=== PATIENT | male | born 1940 | race Caucasian/White ===

== ENCOUNTER 2020-04-27 08:19 | Outpatient (NON) | payer MEDICARE, SELFPAY ==
[2020-04-27 14:32] LABS: Influenza Control Positive
[2020-04-28 00:19] LABS: SARS-CoV-2 RNA PCR Negative
== END 2020-04-27 08:20 ==
PROVIDERS: PCP Family Medicine; Visit Provider Physician Assistant
DX: R53.83 Other fatigue (principal); R06.02 Shortness of breath; Z20.828 Contact with and (suspected) exposure to other viral communicable diseases
CPT/HCPCS: 87635; 87804; C9803; U0003

== ENCOUNTER 2020-10-01 08:41 | Outpatient (CLI) | payer MEDICARE, SELFPAY ==
--- NOTE | ~2020-10-01 | XR_ITS ---
EXAMINATION: XR chest 2V DATE: 10/01/2020 09:21 INDICATION: Cough and shortness of breath. Right chest pain. TECHNIQUE: Frontal and lateral views of the chest were obtained. COMPARISON: Chest 2 views 07/17/2015 FINDINGS: A calcified right lung nodule is consistent with old granulomatous disease. There is mild a telectasis in the lower lung zones. No pleural effusion or pneumothorax. The heart size is normal. IMPRESSION: 1. Mild atelectasis in the lower lung zones. Reviewed, dictated and finalized at location B.
[2020-10-01 09:07] LABS: Basophils Percent Auto 0.4 % (0.2-1.2); Eosinophils Absolute Auto 0.1 K/mm3 (0-0.3); Eosinophils Percent Auto 1.2 % (0-4.4); Hematocrit 40.2 % (42.0-52.0); Hemoglobin 12.6 g/dL (14.0-18.0); Immature Granulocyte Absolute 0.04 K/mm3 (0.00-0.031); Immature Granulocyte Percent A 0.4 % (0-0.5); Lymphocytes Absolute Auto 2.08 K/mm3 (0.9-3.2); Mean Corpuscular HGB Conc 31.3 g/dl (32-36); Mean Corpuscular Hemoglobin 26.7 pg (26-34); Mean Corpuscular Volume 85.2 fl (80-100); Mean Platelet Volume 9.9 fl (7.4-10.4); Monocytes Absolute Auto 0.8 K/mm3 (0.1-0.6); Monocytes Percent Auto 9.2 % (2.6-8.5); Neutrophils Absolute Auto 5.9 K/mm3 (1.3-6.7); Neutrophils Percent Auto 65.8 % (45.5-73.1); Platelet Count Result 240 k/mm3 (150-375); Red Blood Count 4.72 M/mm3 (4.6-6.20); Red Cell Distribution Width 16.2 % (11.5-14.5)
[2020-10-01 09:22] LABS: Alanine Aminotransferase 16 U/L (4-50); Albumin Level 3.6 g/dL (3.5-5.1); Alkaline Phosphatase 96 U/L (38-126); Anion Gap 0 mmol/L (8-16); Aspartate Amino Transferase 25 U/L (17-59); Bilirubin,Total 0.3 mg/dL (0.2-1.3); Blood Urea Nitrogen 17 mg/dL (9-20); Calcium 8.6 mg/dL (8.4-10.2); Carbon Dioxide 31 mmol/L (22-30); Chloride 108 mmol/L (98-107); Estimated Glomerular Filt Rate > 60; Glucose 144 mg/dL (75-110); Potassium 4.1 mmol/L (3.4-5.0); Sodium 139 mmol/L (137-145)
== END 2020-10-01 08:42 | disposition home or self-care (01) ==
PROVIDERS: PCP Family Medicine; Visit Provider Physician Assistant
DX: J44.9 Chronic obstructive pulmonary disease, unspecified (principal); R06.02 Shortness of breath; R05 Cough; R91.8 Other nonspecific abnormal finding of lung field
CPT/HCPCS: 36415; 71046; 80053; 85025

== ENCOUNTER 2021-11-27 18:24 | Observation (INO) | payer MEDICARE, OTHER, SELFPAY ==
[2021-11-27] VITALS (29 sets, daily range): BP systolic 135–166; BP diastolic 57–92; PULSE 63–78; RESP 13–20; TEMP 35.8–36.4; O2SAT 92–97; BMI 33.7
--- NOTE | ~2021-11-27 | NM_ITS ---
EXAMINATION: NM stephen stress w perfusion DATE: 11/28/2021 12:48 INDICATION: Chest pain TECHNIQUE: Rest images were obtained following intravenous administration of 9.6 mCi Tc99m tetrofosmi n (Myoview). The patient was infused intravenously with Lexiscan (Regadenoson). Then, 31.3 mCi Tc99m tetrofosmin (Myoview) was administered intravenously, and stress images were obtained. Data was recon structed into short axis and horizontal and vertical long axis SPECT images. Gated SPECT images were also obtained. COMPARISON: None. FINDINGS: There is no definite reversible or fixed perfusion abnormality to suggest ischemia or infar ction. There is normal left ventricular chamber size, wall motion and ejection fraction. Left ventr icular ejection fraction measures 68%. IMPRESSION: 1. Normal myocardial perfusion at rest and during stress. 2. Left ventricular ejection fraction measuring 68%. Reviewed, dictated and finalized at location A.
--- NOTE | ~2021-11-27 | XR_ITS ---
EXAMINATION: XR chest 2V Exam Date/Time: 11/27/2021 18:40 CDT HISTORY: CHEST PAIN/PRESSURE, LOWER EXT EDEMA Comparison: None available. RESULT: Lines, tubes, and devices: None. Lungs and pleura: Bibasilar scar/atelectasis, otherwise clear. Cardiomediastinal silhouette: Stable cardiomediastinal silhouette. Other: No acute osseous or upper abdominal finding. IMPRESSION: No acute cardiopulmonary process. Reviewed, dictated and finalized at location K.
--- NOTE | 2021-11-27 18:28 | ECG_ITS ---
Measurements Intervals [place] Rate: 69 P: -46 NE: 187 QRS: -47 QRSD: 153 T: 13 QT: 414 QTc: 445 Interpretive Statements SINUS RHYTHM RIGHT BUNDLE BRANCH BLOCK LEFT ANTERIOR FASCICULAR BLOCK ABNORMAL ECG Electronically Signed On 11-28-2021 6:54:39 CDT by Ang Garcia D.O.
[2021-11-27 19:04] LABS: Basophils Absolute Auto 0.1 K/mm3 (0.0-0.1); Basophils Percent Auto 0.4 % (0.2-1.2); Eosinophils Absolute Auto 0.1 K/mm3 (0-0.3); Eosinophils Percent Auto 0.8 % (0-4.4); Hemoglobin 13.1 g/dL (14.0-18.0); Immature Granulocyte Absolute 0.06 K/mm3 (0.00-0.031); Immature Granulocyte Percent A 0.5 % (0-0.5); Lymphocytes Absolute Auto 2.56 K/mm3 (0.9-3.2); Lymphocytes Percent Auto 19.4 % (18.3-44.2); Mean Corpuscular Volume 84.4 fl (80-100); Mean Platelet Volume 11.2 fl (7.4-10.4); Monocytes Absolute Auto 1.4 K/mm3 (0.1-0.6); Monocytes Percent Auto 10.5 % (2.6-8.5); Neutrophils Absolute Auto 9.1 K/mm3 (1.3-6.7); Neutrophils Percent Auto 68.4 % (45.5-73.1); Platelet Count Result 224 k/mm3 (150-375); Red Blood Count 4.86 M/mm3 (4.6-6.20); Red Cell Distribution Width 16.4 % (11.5-14.5); White Blood Count 13.2 K/mm3 (4.5-10.0)
[2021-11-27 19:09] LABS: Alanine Aminotransferase 12 U/L (6-50); Albumin Level 3.6 g/dL (3.5-5.1); Alkaline Phosphatase 97 U/L (38-126); Anion Gap 6 mmol/L (8-16); Aspartate Amino Transferase 17 U/L (17-59); Bilirubin,Total 1.1 mg/dL (0.2-1.3); Blood Urea Nitrogen 19 mg/dL (9-20); Calcium 8.2 mg/dL (8.4-10.2); Carbon Dioxide 26 mmol/L (22-30); Chloride 107 mmol/L (98-107); Estimated CRCL calculation 74 ml/min; Estimated Glomerular Filt Rate > 60; Glucose 132 mg/dL (65-110); Lipase 15 U/L (23-300); Potassium 4.1 mmol/L (3.4-5.0); Sodium 139 mmol/L (137-145)
[2021-11-27 19:13] LABS: INR 1.3; Prothrombin Time 15.3 Seconds (11.1-14.7)
[2021-11-27 19:14] LABS: Partial Thromboplastin Time 38.7 SECONDS (22.3-36.8)
[2021-11-27 19:21] LABS: NT Pro B Type Natriuretic Pept 488 pg/mL (5-100); Troponin I < 0.012 ng/mL (0.000-0.034)
--- NOTE | 2021-11-27 20:23 | ED.CHESTPAIN ---
HPI - Chest Pain General Chief Complaint: Chest Pain Stated Complaint: dyspnea with cp on inspiration Time Seen by Provider: 11/27/21 18:24 History of Present Illness HPI narrative: Patient is an 81-year-old male who presents ER with neck pain and chest pain. Ongoing for 3 days. Intermittent. Worse with position changes all sitting and lying but also with moving around. Not affected with eating or drinking. No burning into his throat. Reports he had similar symptoms when he had pneumonia in the past. No fevers or chills or sweats. No productive cough. No history of MA. Received aspirin from EMS. Related Data Home Medications Medication Instructions Recorded Confirmed aspirin 81 mg tablet,delayed 81 mg PO DAILY 04/13/19 release (Aspir-Low) budesonide-formoterol HFA 160 2 puff inhalation Q12H 04/13/19 mcg-4.5 mcg/actuation aerosol inhaler (Symbicort) finasteride 5 mg tablet 5 mg PO DAILY 04/13/19 ipratropium 0.5 mg-albuterol 3 mg 3 ml inhalation Q6H PRN 04/13/19 (2.5 mg base)/3 mL nebulization soln tamsulosin 0.4 mg capsule 0.4 mg PO DAILY 04/13/19 omeprazole 20 mg capsule,delayed 40 mg PO DAILY 10/12/19 release Allergies Allergy/AdvReac Type Severity Reaction Status Date / Time No Known Allergies Allergy Unknown Verified 10/01/20 09:33 Review of Systems Review of Systems: All systems reviewed & are unremarkable except as noted in HPI and below Constitutional: Constitutional: Denies chills, Reports fatigue and Denies fever(s) ENT: Denies dysphagia, Denies nasal congestion and Denies sore throat Cardiovascular: Cardiovascular: Reports chest pain, Denies rapid heart rate, Reports radiating jaw, neck or arm pain and Denies slow heart rate Respiratory: Respiratory: Denies cough, Denies dyspnea and Denies wheezing Gastrointestinal: Gastrointestinal: Denies abdominal pain, Denies nausea and Denies vomiting Musculoskeletal: Musculoskeletal: Denies back pain, Denies arthralgias and Denies joint swelling Neurologic: Denies headache(s), Denies focal weakness and Denies numbness PMFSH Past Medical History Medical History (Updated 11/27/21 @ 22:15 by Juan Olivarez MD) Chronic bilateral low back pain without sciatica COPD (chronic obstructive pulmonary disease) Elevated blood pressure reading History of kidney stones Prostate CA Reflux esophagitis Surgical History Surgical History (Updated 11/27/21 @ 20:28 by Juan Olivarez MD) History of appendectomy History of cardiac radiofrequency ablation History of cholecystectomy History of tonsillectomy Family History Family History Sibling Patient's sister is in good health Patient's brother is in good health Other Diabetes mellitus Family history of heart disease in male family member before age 55 Social History Social History (Updated 10/01/20 @ 09:34 by April Small) Smoking packs per day: 3 Smoking cigarettes per day: 60.0 Years smoked: 40 Smoking pack-years: 120.00 Smoking status: Former smoker Tobacco type: cigarettes Second hand tobacco smoke exposure: No Smoking end date: 05/25/89 Alcohol intake: never Substance use: never Substance use type: does not use Gender identity (if verbalized by the patient): Male Sexual Orientation (if Verbalized by the Patient): Straight or Heterosexual Exam Narrative: GENERAL: Well-appearing, obese, and in no acute distress. HEAD: Normocephalic, atraumatic. EYES: PERRL and EOMI. ENT: Mucous membranes moist. NECK: Supple. CHEST: Clear to auscultation. No respiratory distress. HEART: Regular rate and rhythm. Normal peripheral pulses. ABDOMEN: Soft, nontender, nondistended. EXTREMITIES: Normal range of motion. 1+ edema. SKIN: Warm, dry, no rash. NEURO: NAlert and oriented x3. PSYCH: Normal mood and affect. Course Course Emergency Course: First troponin negative. We will plan
--- NOTE | 2021-11-27 20:55 | PC.NURSE ---
Pts BP 154/83 ERP made aware verbal to hold hydralazine at this time.
[2021-11-27 22:30] LABS: Troponin I < 0.012 ng/mL (0.000-0.034)
[2021-11-27 22:43] LABS: SARS-CoV-2 RNA PCR Negative
--- NOTE | 2021-11-27 23:47 | ADMGEN ---
This patient, Brad Andrews, was admitted to IMU Room 205-01 on 11/27/21 at 2340. Patient/family oriented to hospital policies and general routines including ID bracelet, bed and alarms, visiting hours, pain management, procedures, bathroom and other care routines, personal items, smoking policy, room service/diet, and visiting hours. Information on how to activate the Rapid Response Team has been discussed. Patient/Family are encouraged to report perceived risks to care and to ask questions if they do not understand what they are told or what they should do.
--- NOTE | 2021-11-27 23:51 | PM.IMHP ---
H&P: HPI History of Present Illness Date/Time: 11/27/21 22:45 Chief Complaint: Chest pain Narrative: 81-year-old male with past medical history of memory impairment, COPD, and BPH who presented to the ER from home via EMS due to chest pain. The patient reports that he has had 4 days of intermittent chest pain. The pain occurs both at rest and with activity. The pain is central in location and is described as a heaviness. He reports the pain is worse with exhalation. He reports that the pain is quite severe but cannot give me a numerical report. Has been occurring multiple times a day and will last up to 20 minutes each time. It is occasionally accompanied by some nausea. The pain radiates through to his back and is accompanied by a sensation of globus. He has chronic cough due to COPD but his cough is unchanged from baseline. He denies any sore throat. He has some chronic rhinitis but denies any increase in symptoms. He does have chronic urinary frequency and sensation of incomplete bladder emptying. He is on medications for BPH and has history of prostate cancer. He denies any hematuria. He denies any lower extremity edema. He does report that he sweats each night despite turning his thermostat down. Sounds as if the sweating is not a new problem. He denies a history of obstructive sleep apnea and states that he has had multiple sleep studies that were negative. The patient reports that he has had history of chronic right lower ribs and lung pain that occurs frequently ever since he had pneumonia about 5 years ago. He reports that his current pain is different than his prior pain. Source of information is from mostly patient report. The patient is a fair historian has difficulty recalling some of more recent events. He states that his memory is just shot. He reports that he is vaccinated against COVID and has received his booster. He denies any recent ill contacts. The patient reports he gets his medications from the [facility] but sees Dr. Gautam's office for his routine care. He did ask the EMS to take the him to the [facility] but EMS told them that they do not do that. Review of Systems Review of Systems: 12 systems were reviewed with pertinent positives and negatives per HPI. Except as documented in the HPI, all other systems were reviewed and are negative. [facility] Past Medical History Medical History (Updated 11/28/21 @ 00:19 by Annel Pastrana DO) Allergic rhinitis BPH (benign prostatic hyperplasia) Chronic bilateral low back pain without sciatica COPD (chronic obstructive pulmonary disease) Kidney stones (11/2013) Prostate cancer Status post radiation Reflux esophagitis Spinal stenosis of lumbar region Surgical History Surgical History (Updated 11/28/21 @ 00:19 by Annel Pastrana DO) History of appendectomy History of bilateral cataract extraction History of bilateral inguinal hernia repair X2 History of cardiac radiofrequency ablation History of cholecystectomy History of cystoscopy (2013) Due to left distal ureteral stone without stent placement History of esophagogastroduodenoscopy (EGD) (08/2018) History of lumbar surgery History of tonsillectomy Family History Family History Sibling Patient's sister is in good health Patient's brother is in good health Other Diabetes mellitus Family history of heart disease in male family member before age 55 Social History Social History (Updated 11/27/21 @ 23:58 by Annel Pastrana DO) Social History: Code status: Full code Surrogate decision maker: Cookie Gallagher (Daughter) Smoking packs per day: 3 Smoking cigarettes per day: 60.0 Years smoked: 40 Smoking pack-years: 120.00 Smoking status: Former smoker Tobacco type: cigarettes Second hand tobacco smoke exposure: No Smoking end date: 05/25/89 Alcohol intake: former Alcohol use details: Aubrie
[2021-11-28] VITALS (14 sets, daily range): BP systolic 104–174; BP diastolic 55–96; PULSE 51–68; RESP 16–20; TEMP 35.6–36.7; O2SAT 95–98
[2021-11-28 01:22] LABS: Troponin I < 0.012 ng/mL (0.000-0.034)
--- NOTE | 2021-11-28 08:00 | EST_ITS ---
Patient Info Name: Brad Andrews Age: 81 years : 1940 Gender: Male Ht: 70 in Wt: 233 lbs BSA: 2.32 m2 HR: 68 bpm BP: 175 / 85 mmHg Heart Rhythm: Sinus Rhythm Exam Date: 11/28/2021 11:26 AM Exam Location: [facility] Stress Patient Status: Inpatient Admit Date: 11/27/2021 Staff Ordering Physician: Annel Pastrana DO Attending Provider: Annel Pastrana DO Exercise Technologist: Tika Mcconnell CT Exercise Physician: Ang Garcia DO Exam Type: CA stress stephen w NM Study Info Indications R07.9 - Chest pain, unspecified A regadenoson stress test was performed. Summary 1. 1. Negative lexiscan stress test for ischemic ST changes by ECG criteria. 2. 2. Baseline hypertension. 3. 3. Nuclear scan to follow and will be reported separately. Please correlate with it. 4. 4. Patient informed of the above results. Protocol: Lexiscan Stress ECG Details Stage: REST Duration (min): 2 min : 0 sec HR (bpm): 66 SBP (mmHg): 175 DBP (mmHg): 85 Stage: REST Duration (min): 10 min : 4 sec HR (bpm): 65 SBP (mmHg): 175 DBP (mmHg): 85 Stage: STAGE 1 Duration (min): 0 min : 59 sec HR (bpm): 81 SBP (mmHg): 175 DBP (mmHg): 85 Stage: RECOVERY Duration (min): 1 min : 0 sec HR (bpm): 87 SBP (mmHg): 172 DBP (mmHg): 82 Stage: RECOVERY Duration (min): 2 min : 0 sec HR (bpm): 80 SBP (mmHg): 172 DBP (mmHg): 82 Stage: RECOVERY Duration (min): 3 min : 0 sec HR (bpm): 77 SBP (mmHg): 172 DBP (mmHg): 82 Stage: RECOVERY Duration (min): 3 min : 15 sec HR (bpm): 80 SBP (mmHg): 170 DBP (mmHg): 78 Rest HR: 65 bpm Peak HR: 91 bpm Rest Sys BP: 175 mmHg Peak Sys BP: 172 mmHg Max Pred HR: 138 bpm % Max Pred HR: 66 % Target HR: 117 bpm Max RPP: 15,652 bpm*mmHg Termination Reason: Completed protocol Cardiac Symptoms: Shortness of breath Total Time: 1 min : 0 sec Rest [place] BP: 85 mmHg Peak [place] BP: 82 mmHg Total Dose: 0.4 mg Resting ECG Sinus rhythm, first degree AV block, RBBB. Stress ECG No ST changes. Arrhythmias None. Report Signatures
[2021-11-28] MEDS: FINASTERIDE 5 MG TABLET PO (08:16)
[2021-11-28] MEDS: PANTOPRAZOLE 40 MG TABLET PO ×2 (08:17→20:22)
[2021-11-28] MEDS: OPTI-GEN TAB 1 TABLET PO ×2 (08:17→17:15)
[2021-11-28] MEDS: ASPIRIN 81 MG ENTERIC TABLET PO (08:17)
[2021-11-28] MEDS: TAMSULOSIN HCL 0.4 MG CAPSULE PO (08:17)
[2021-11-28] MEDS: lisinopriL 20 MG TABLET PO (08:58)
--- NOTE | 2021-11-28 17:05 | PM.IMPN ---
Progress Note: A&P Assessment and Plan (1) Chest pain: Code(s): R07.9 - Chest pain, unspecified Status: Acute Assessment and Plan: If the patient's cardiac enzymes are negative x3 a order a stress test for a.m. to evaluate for possible cardiac ischemia. P.r.n. nitroglycerin has been provided. Patient will be monitored in the IMU. 11/28/2021 interval history: 81-year-old male presented with complaint of chest is 3 sets of cardiac enzymes are negative and her no acute changes on EKG, to further evaluate patient had Lexiscan test which was essentially normal without any ischemia, remains clinically stable however feels tired and fatigued will have PT OT evaluate the patient and possibly discharge the patient home tomorrow. (2) Elevated blood pressure reading: Code(s): R03.0 - Elevated blood-pressure reading, without diagnosis of hypertension Status: Acute Assessment and Plan: The patient's blood pressures have been intermittently elevated while is in the ER. It looks like his outpatient blood pressure readings have been upper limit of normal in the past. The patient may need the addition antihypertensives. Will continue to monitor. Patient did receive 1 dose of hydralazine in the ER. (3) Memory impairment: Code(s): R41.3 - Other amnesia Status: Acute Assessment and Plan: It sounds as if the patient is being evaluated for memory impairment at the [place]. patient's memory impairment seems mild at this time. He would benefit from outpatient neuro cognitive testing if already arranged. Plan Patient has been admitted as observation status. Subjective Date/time seen: 11/28/21 17:05 Chief Complaint: Chest pain Narrative: HPI:81-year-old male with past medical history of memory impairment, COPD, and BPH who presented to the ER from home via EMS due to chest pain.? The patient reports that he has had 4 days of intermittent chest pain.? The pain occurs both at rest and with activity.? The pain is central in location and is described as a heaviness.? He reports the pain is worse with exhalation.? He reports that the pain is quite severe but cannot give me a numerical report.? Has been occurring multiple times a day and will last up to 20 minutes each time.? It is occasionally accompanied by some nausea.? The pain radiates through to his back and is accompanied by a sensation of globus.? He has chronic cough due to COPD but his cough is unchanged from baseline.? He denies any sore throat.? He has some chronic rhinitis but denies any increase in symptoms.? He does have chronic urinary frequency and sensation of incomplete bladder emptying.? He is on medications for BPH and has history of prostate cancer.? He denies any hematuria.? He denies any lower extremity edema.? He does report that he sweats each night despite turning his thermostat down.? Sounds as if the sweating is not a new problem.? He denies a history of obstructive sleep apnea and states that he has had multiple sleep studies that were negative.? The patient reports that he has had history of chronic right lower ribs and lung pain that occurs frequently ever since he had pneumonia about 5 years ago.? He reports that his current pain is different than his prior pain. Source of information is from mostly patient report.? The patient is a fair historian has difficulty recalling some of more recent events.? He states that his memory is just shot.? He reports that he is vaccinated against COVID and has received his booster.? He denies any recent ill contacts. The patient reports he gets his medications from the [facility] but sees Dr. Gautam's office for his routine care.? He did ask the EMS to take the him to the [facility] but EMS told them that they do not do that. 11/28/2021 interval history: 81-year-old male presented with complaint of chest is 3 sets of cardiac enzymes are negative and her no acute changes on EKG, to furthe
[2021-11-29] VITALS (7 sets, daily range): BP systolic 148–154; BP diastolic 57–115; PULSE 48–87; RESP 12–20; TEMP 36.4–36.6; O2SAT 96–97
[2021-11-29] MEDS: ASPIRIN 81 MG ENTERIC TABLET PO (09:30)
[2021-11-29] MEDS: ACETAMINOPHEN 325 MG TABLET 650 MG PO (09:30)
[2021-11-29] MEDS: FINASTERIDE 5 MG TABLET PO (09:32)
[2021-11-29] MEDS: ENOXAPARIN 40 MG/0.4 ML SYRINGE SUB-Q (09:32)
[2021-11-29] MEDS: PANTOPRAZOLE 40 MG TABLET PO (09:32)
[2021-11-29] MEDS: lisinopriL 20 MG TABLET PO (09:32)
[2021-11-29] MEDS: TAMSULOSIN HCL 0.4 MG CAPSULE PO (09:34)
[2021-11-29] MEDS: OPTI-GEN TAB 1 TABLET PO (09:34)
[2021-11-29] MEDS: ALBUTEROL SULFATE (*SP) AEROSOL 1 PUFF 2 PUFF INHALATION (09:39)
[2021-11-29] MEDS: HYDROcodone/acetaminophen (*CRX) 5-325 MG TABLET 1 TAB PO (11:28)
[2021-11-29] MEDS: LIDOCAINE 5% PATCH 3 PATCH TRANSDERM (11:28)
--- NOTE | 2021-11-29 11:36 | PM.DS ---
DS: Admitting Diagnosis Discharge Date 11/29/2021 Admitting Diagnosis chest pain DS: Discharge Diagnosis Discharge Diagnosis (1) Chest pain: Code(s): R07.9 - Chest pain, unspecified Status: Acute Assessment and Plan: If the patient's cardiac enzymes are negative x3 a order a stress test for a.m. to evaluate for possible cardiac ischemia. P.r.n. nitroglycerin has been provided. Patient will be monitored in the IMU. 11/28/2021 interval history: 81-year-old male presented with complaint of chest is 3 sets of cardiac enzymes are negative and her no acute changes on EKG, to further evaluate patient had Lexiscan test which was essentially normal without any ischemia, remains clinically stable however feels tired and fatigued will have PT OT evaluate the patient and possibly discharge the patient home tomorrow. (2) Elevated blood pressure reading: Code(s): R03.0 - Elevated blood-pressure reading, without diagnosis of hypertension Status: Acute Assessment and Plan: The patient's blood pressures have been intermittently elevated while is in the ER. It looks like his outpatient blood pressure readings have been upper limit of normal in the past. The patient may need the addition antihypertensives. Will continue to monitor. Patient did receive 1 dose of hydralazine in the ER. (3) Memory impairment: Code(s): R41.3 - Other amnesia Status: Acute Assessment and Plan: It sounds as if the patient is being evaluated for memory impairment at the [place]. patient's memory impairment seems mild at this time. He would benefit from outpatient neuro cognitive testing if already arranged. Plan Patient has been admitted as observation status. DS: Summary Hospital Course Reason for hospitalization: Chest pain Narrative: 81-year-old male with past medical history of memory impairment, COPD, and BPH who presented to the ER from home via EMS due to chest pain.? The patient reports that he has had 4 days of intermittent chest pain.? The pain occurs both at rest and with activity.? The pain is central in location and is described as a heaviness.? He reports the pain is worse with exhalation.? He reports that the pain is quite severe but cannot give me a numerical report.? Has been occurring multiple times a day and will last up to 20 minutes each time.? It is occasionally accompanied by some nausea.? The pain radiates through to his back and is accompanied by a sensation of globus.? He has chronic cough due to COPD but his cough is unchanged from baseline.? He denies any sore throat.? He has some chronic rhinitis but denies any increase in symptoms.? He does have chronic urinary frequency and sensation of incomplete bladder emptying.? He is on medications for BPH and has history of prostate cancer.? He denies any hematuria.? He denies any lower extremity edema.? He does report that he sweats each night despite turning his thermostat down.? Sounds as if the sweating is not a new problem.? He denies a history of obstructive sleep apnea and states that he has had multiple sleep studies that were negative.? The patient reports that he has had history of chronic right lower ribs and lung pain that occurs frequently ever since he had pneumonia about 5 years ago.? He reports that his current pain is different than his prior pain. Source of information is from mostly patient report.? The patient is a fair historian has difficulty recalling some of more recent events.? He states that his memory is just shot.? He reports that he is vaccinated against COVID and has received his booster.? He denies any recent ill contacts. The patient reports he gets his medications from the [facility] but sees Dr. Gautam's office for his routine care.? He did ask the EMS to take the him to the [facility] but EMS told them that they do not do that. Hospital Course: 81-year-old male presented with complaint of chest is 3 sets
== END 2021-11-29 13:16 | disposition home or self-care (01) ==
LOC: ANHED 22:15 → ANHIMU 11-29 10:41
PROVIDERS: Admitting Provider Internal Medicine; Emergency Provider Emergency Medicine; PCP Family Medicine; Visit Provider Family Medicine
DX: R07.9 Chest pain, unspecified (principal); R03.0 Elevated blood-pressure reading, without diagnosis of hypertension; I45.2 Bifascicular block; R41.3 Other amnesia; M54.2 Cervicalgia; J44.9 Chronic obstructive pulmonary disease, unspecified; N40.0 Benign prostatic hyperplasia without lower urinary tract symptoms; R35.0 Frequency of micturition; R33.8 Other retention of urine; J31.0 Chronic rhinitis; R06.00 Dyspnea, unspecified; R61 Generalized hyperhidrosis; R07.81 Pleurodynia; R07.1 Chest pain on breathing; M48.061 Spinal stenosis, lumbar region without neurogenic claudication; Z85.46 Personal history of malignant neoplasm of prostate; Z90.49 Acquired absence of other specified parts of digestive tract; Z20.822 Contact with and (suspected) exposure to COVID-19; Z87.891 Personal history of nicotine dependence; Z79.82 Long term (current) use of aspirin; Z79.51 Long term (current) use of inhaled steroids; Z79.52 Long term (current) use of systemic steroids; Z79.899 Other long term (current) drug therapy
CPT/HCPCS: 36415; 71046; 78452; 80053; 83690; 83880; 84484; 85025; 85610; 85730; 93005; 93017; 94640; 96372; 97161; 99285; A9270; A9502; C9803; G0378; J1650; J2785; U0003; U0005

== ENCOUNTER 2023-04-30 07:48 | Outpatient (RCR) | payer OTHER, SELFPAY ==
--- NOTE | 2023-04-30 08:15 | OPREHPOC ---
Outpatient Therapy Plan of Care This is a Multidisciplinary Plan of Care that may contain components documented by all disciplines (PT, OT, and ST.) PT Problem 1 PT Problem #1 Knowledge Deficit PT Goal 1 Goal Patient to demonstrate independence with HEP Target Visit 5 PT Problem 2 PT Problem #2 Pain PT Goal 1 Goal 1. Patient to report highest pain at 4/10 2. Patient to report ability to sleep in bed all night without disturbance due to back pain Target Visit 15 PT Problem 3 PT Problem #3 Impaired Strength PT Goal 1 Goal Patient to demonstrate 4+/5 B hip strength to return to standing for house hold tasks Target Visit 15 PT Problem 4 PT Problem #4 Impaired Functional Mobil PT Goal 1 Goal 1. Patient to improve LEFS by 20% 2. Patient to report ability to ambulate >15 minutes to ambulate into MD appointments 3. Patient to report ability to stand for >30 minutes to complete house hold tasks Target Visit 15
--- NOTE | 2023-04-30 08:16 | PTOPEVAL1 ---
Assessment and note entered by Sharmin Limon DPT Evaluation Information Assessment Status Evaluation Diagnosis back pain, right hip pain Onset 04/27/23 Subjective Information Patient reports he has back and hip pain for years . He reports he has been told he is full of arthritis. He reports pain is from underneath of R shoulder blade to low back and into the R hip. He reports he broke his back many years ago in the [employer]. Patient reports he has increased pain with walking, standing and sleeping. He reports he is unable to mow his lawn due to pain. He reports he is supposed to use a cane but does not use it. Reported Pain Level Pain Score 6,6: Self Report Assessment PT Clinical Summary Mr. Andrews is a 82 year old male who presents to PT with low back and R hip pain. Patient demonstrates impaired posture, impaired gait, decreased LE strength and decreased LE flexibility impairing his ability to sleep throughout the night, complete house hold tasks, stand for long periods of time and ambulate within the home and in the community. He would benefit from skilled PT to address impairments and return to PLOF. Plan of Care Interventions Gait Training,Hot Pack/Cold Pack,Manual Therapy, Neuro Re-education,Patient/Caregiver Educati, Therapeutic Activities,Therapeutic Exercise PT Services Indicated Yes Treatment Frequency and 2x weekly for 15 visits Duration These treatments will address the objective and functional deficits as defined above. The patient will be advanced safely and appropriately in order for the patient to progress towards his/her prior level of function. Additional exercises will be introduced and as well as a comprehensive home exercise program upon discharge, if needed, ?to ensure carryover of functional gains achieved in the clinic. This treatment plan has been reviewed and agreement upon by the patient.
--- NOTE | 2023-08-13 08:26 | PCPTNOTE ---
patient discharged due to persisting pain and diagnosis of kidney cancer
== END 2023-05-14 20:00 | disposition home or self-care (01) ==
LOC: CHSPT 07:48
DX: M25.552 Pain in left hip (principal)
CPT/HCPCS: 97110; 97112; 97161

== ENCOUNTER 2024-02-17 10:49 | Outpatient (RCR) | payer OTHER, SELFPAY ==
--- NOTE | 2024-02-17 12:04 | OPREHPOC ---
Outpatient Therapy Plan of Care This is a Multidisciplinary Plan of Care that may contain components documented by all disciplines (PT, OT, and ST.) PT Problem 1 PT Problem #1 Knowledge Deficit PT Goal 1 Goal / Goal Update The patient will be independent in a home exercise program to continue after discharge from formal PT. Target Visit 10 PT Problem 2 PT Problem #2 Pain PT Goal 1 Goal / Goal Update The patient will report no greater than 6/10 knee pain with sit to stand transfers. Target Visit 10 PT Problem 3 PT Problem #3 Impaired Functional Mobil PT Goal 1 Goal / Goal Update 1. The patient will demonstrate 70% or less self perceived disability per the LEFS questionnaire. 2. The patient will demonstrate the ability to transfer sit to stand with no UE support to improve functional mobility. Target Visit 10 PT Problem 4 PT Problem #4 Impaired Balance PT Goal 1 Goal / Goal Update The patient will improve Tinetti Balance Scale score to 19 indicating improved balance and less fall risk. Target Visit 10 PT Problem 5 PT Problem #5 Impaired Range of Motion PT Goal 1 Goal / Goal Update The patient will improve bilateral knee AROM to at least 0-110 degrees to improve gait and stair negotiation. Target Visit 10
--- NOTE | 2024-02-17 12:04 | PTOPEVAL1 ---
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 He has had trouble with his knees and back since then. He is hoping to get surgery on his left knee and eventually his right knee as he has bone on bone deformity. He is unable to ride his stationary bike because it is in his basement and he can no longer go up and down stairs. He has to take stairs backwards when going down stairs. He has had falls in the past due to being off balance but has not had any falls recently. He feels he has trouble lifting his feet. He has a walker but tries not use it. He reports he has seen the doctor at the [facility] and had x-rays of his knees. He was diagnosed with osteoarthrits and was referred to PT. He lives alone and does the cooking himself but has a helper come in weekly to clean. He has a ramp that leads from his back door to the garage that he uses to get in and out of the house. He is having constant knee pain on both sides. Reported Pain Level Pain Score 7,7: Self Report Assessment PT Clinical Summary Brad Andrews presents with bilateral knee OA. He has a history of lumbar spine surgery, prostate CA , COPD, pacemaker placement, and hip OA as well. He has difficulty with getting up from chairs, walking, and can no longer go up and down stairs. He objectively demonstrates decreased and painful bilateral knee AROM, decreased bilateral knee and hip strength, altered gait, poor balance, and decreased functional mobility and abilities. He is currently a high fall risk. He will benefit from skilled PT to address these limitations. Plan of Care Interventions Electrical Stimulation,Gait Training,Hot Pack/Cold Pack,Intermittent Compression,Manual Therapy, Neuro Re-education,Patient/Caregiver Educati, Therapeutic Activities,Therapeutic Exercise PT Services Indicated Yes Treatment Frequency and 2 times a week for 10 visits Duration These treatments will address the objective and functional deficits as defined above. The patient will be advanced safely and appropriately in order for the patient to progress towards his/her prior level of function. Additional exercises will be introduced and as well as a comprehensive home exercise program upon discharge, if needed, ?to ensure carryover of functional gains achieved in the clinic. This treatment plan has been reviewed and agreement upon by the patient.
--- NOTE | 2024-03-18 13:09 | OPREHPOC ---
Outpatient Therapy Plan of Care This is a Multidisciplinary Plan of Care that may contain components documented by all disciplines (PT, OT, and ST.) PT Problem 1 PT Problem #1 Knowledge Deficit PT Goal 1 Goal / Goal Update The patient will be independent in a home exercise program to continue after discharge from formal PT. Target Visit 10 Progress Met PT Problem 2 PT Problem #2 Pain PT Goal 1 Goal / Goal Update The patient will report no greater than 6/10 knee pain with sit to stand transfers. Target Visit 16 Progress Not Met PT Problem 3 PT Problem #3 Impaired Functional Mobil PT Goal 1 Goal / Goal Update 1. The patient will demonstrate 70% or less self perceived disability per the LEFS questionnaire. 2. The patient will demonstrate the ability to transfer sit to stand with no UE support to improve functional mobility. 3. The patient will complete 6 minute walk test without sitting rest. Target Visit 16 Progress Not Met PT Problem 4 PT Problem #4 Impaired Balance PT Goal 1 Goal / Goal Update The patient will improve Tinetti Balance Scale score to 19 indicating improved balance and less fall risk. Tug to be completed in 35 seconds or less. Target Visit 16 Progress Not Met PT Problem 5 PT Problem #5 Impaired Range of Motion PT Goal 1 Goal / Goal Update The patient will improve bilateral knee AROM to at least 0-110 degrees to improve gait and stair negotiation. Target Visit 10 Progress Met
--- NOTE | 2024-03-18 13:09 | PTOPREEVAL ---
Assessment and note entered by JT File, PT Evaluation Information Assessment Status Re-evaluation Diagnosis Knee OA ICD-10 Condition Codes (PT) M25.561,Pain in left knee M25.562 Onset 02/10/24 Subjective Information he reports feels his knees are a bit better since starting therapy. he reports he feels he is more easily able to get in and out of his car. however, he reports he still is unable to walk a block without rest. he reports he is still able to get done the things he has to do. he reports he is limited in walking both due to the knee pain and breathing issues. he reports he would like to continue therapy as he does feel it has been helping. Reported Pain Level Pain Score 7,5: Self Report Assessment PT Clinical Summary mr. austin presents to skilled PT services for his 10th skilled therapy visit for his knees today. he presents with continued bilateral knee pain today , but improved arom. he is making progress towards goals for skilled PT, but really lacks in his balance, endurance, and ambulation functional performance. he would benefit from continued skilled PT services to improve his objective/ functional deficits and improve functional activity performance/quality of life. Plan of Care Interventions Electrical Stimulation,Gait Training,Hot Pack/Cold Pack,Intermittent Compression,Manual Therapy, Neuro Re-education,Patient/Caregiver Educati, Therapeutic Activities,Therapeutic Exercise PT Services Indicated Yes Treatment Frequency and continue skilled PT 2x weekly for 6 visits Duration These treatments will address the objective and functional deficits as defined above. The patient will be advanced safely and appropriately in order for the patient to progress towards his/her prior level of function. Additional exercises will be introduced and as well as a comprehensive home exercise program upon discharge, if needed, ?to ensure carryover of functional gains achieved in the clinic. This treatment plan has been reviewed and agreement upon by the patient.
--- NOTE | 2024-04-06 11:48 | OPREHPOC ---
Outpatient Therapy Plan of Care This is a Multidisciplinary Plan of Care that may contain components documented by all disciplines (PT, OT, and ST.) PT Problem 1 PT Problem #1 Knowledge Deficit PT Goal 1 Goal / Goal Update The patient will be independent in a home exercise program to continue after discharge from formal PT. Target Visit 10 Progress Met PT Problem 2 PT Problem #2 Pain PT Goal 1 Goal / Goal Update The patient will report no greater than 6/10 knee pain with sit to stand transfers. Target Visit 16 Progress Not Met PT Problem 3 PT Problem #3 Impaired Functional Mobil PT Goal 1 Goal / Goal Update 1. The patient will demonstrate 70% or less self perceived disability per the LEFS questionnaire. 2. The patient will demonstrate the ability to transfer sit to stand with no UE support to improve functional mobility. 3. The patient will complete 6 minute walk test without sitting rest. met Target Visit 16 Progress Partially Met PT Problem 4 PT Problem #4 Impaired Balance PT Goal 1 Goal / Goal Update The patient will improve Tinetti Balance Scale score to 19 indicating improved balance and less fall risk. Tug to be completed in 35 seconds or less. Target Visit 16 Progress Met PT Problem 5 PT Problem #5 Impaired Range of Motion PT Goal 1 Goal / Goal Update The patient will improve bilateral knee AROM to at least 0-110 degrees to improve gait and stair negotiation. Target Visit 10 Progress Met
--- NOTE | 2024-04-06 11:48 | PTOPDC ---
Assessment and note entered by JT File, PT Evaluation Information Assessment Status Discharge Diagnosis Knee OA ICD-10 Condition Codes (PT) M25.561,Pain in left knee M25.562 Onset 02/10/24 Subjective Information patient reports he feels better overall. he reports he still has difficulty walking any distance due to his breathing. he reports he has had no falls. Reported Pain Level Pain Score Moderate Pain: Turner Willis Assessment PT Clinical Summary mr. austin presents to skilled PT services for his 15th skilled PT visit today. he presents with improved score on the tinetti, 5x sit to stand, tug, and 6 minute walk test. he is still limited in ambulation distance/endurance due to his breathing/cv health. however, he has met more than 60% of his goals for skilled PT. at this time, patient will DC skilled PT and continue with HEP at home. he was educated to continue to focus on strength exercise, as well as, walking and endurance activities. Plan of Care PT Services Indicated Yes
== END 2024-04-06 13:32 | disposition home or self-care (01) ==
LOC: CHSPT 10:49
DX: M17.9 Osteoarthritis of knee, unspecified (principal)
CPT/HCPCS: 97110; 97112; 97161; 97530